=== PATIENT | male | born 1950 | race African-American/Black ===

== ENCOUNTER 2024-01-02 16:33 | Emergency (ER) | payer MEDICARE ==
[~2024-01-02] VITALS: Ht 182.9 cm; Wt 105.0 kg
[2024-01-02 16:54] VITALS: BP 174/109; PULSE 60; RESP 18; TEMP 98.4; O2SAT 99
[2024-01-02 17:57] LABS: BASOPHILS % 0.5 % (0.0-2.0); EOSINOPHILS % 2.1 % (0.0-5.0); HEMATOCRIT. 45.9 % (42.0-52.0); LYMPHOCYTES % 12.9 % (20.0-50.0); MEAN CORPUSCULAR HGB CONC 32.8 g/dL (31.0-37.0); MEAN CORPUSCULAR VOLUME 85.4 fL (80.0-94.0); MEAN PLATELET VOLUME 8.7 fl (7.4-10.4); MONOCYTES % 10.1 % (2.0-8.0); NEUTROPHILS % 74.4 % (40.0-76.0); PLATELET 136 x1000/uL (130-400); RED BLOOD CELL COUNT 5.37 mill/uL (4.7-6.1); RED CELL DISTRIBUTION WIDTH 14.8 % (11.6-14.6); WHITE BLOOD COUNT 6.4 x1000/uL (4.5-11.0)
[2024-01-02 18:06] LABS: CHLORIDE 113 mEq/L (98-107); SODIUM 145 mEq/L (136-145)
[2024-01-02 18:07] LABS: CARBON DIOXIDE 28 mEq/L (21-32)
[2024-01-02 18:08] LABS: CALCIUM 10.4 mg/dL (8.7-10.4)
[2024-01-02 18:12] LABS: CREATININE 1.3 mg/dL (0.6-1.3); GLUCOSE 92 mg/dL (70-105)
[2024-01-02 18:13] LABS: TROPONIN I HIGH SENSITIVITY 10 ng/L (3.0-53); UREA NITROGEN BLOOD 14 mg/dL (9-23)
[2024-01-02 18:14] LABS: ALANINE AMINOTRANSFERASE 32 IU/L (10-49); ALBUMIN 4.3 g/dL (3.2-4.8); ASPARTATE AMINOTRANSFERASE 84 IU/L (<34)
[2024-01-02 18:15] LABS: BILIRUBIN DIRECT 0.5 mg/dL (<=3.0); BILIRUBIN TOTAL 1.2 mg/dL (0.1-1.0); PROTEIN TOTAL 7.2 g/dL (6.0-8.3)
== END 2024-01-02 22:44 | disposition left against medical advice (07) ==
LOC: ER 16:33
DX: R07.9 Chest pain, unspecified (principal); Z53.21 Procedure and treatment not carried out due to patient leaving prior to being seen by health care provider
CPT/HCPCS: 36415; 71045; 80048; 80076; 83880; 84484; 85025; 93005